=== PATIENT | male | born 1950 | race Caucasian/White ===

== ENCOUNTER 2024-11-02 14:46 | Emergency (ER) | payer MEDICARE, SELFPAY ==
[2024-11-02] VITALS (7 sets, daily range): BP systolic 136–165; BP diastolic 84–108; PULSE 48–52; BMI 24.7
[2024-11-02 15:15] LABS: Hematocrit 41.4 % (39.0-52.0); Hemoglobin 14.6 g/dL (13.0-18.0); Mean Corp Hgb Conc. 35.3 g/dL (33.0-37.0); Mean Corpuscular Volume 85.0 fL (80.0-94.0); Nucleated Red Blood Cells % 0 % (-); Platelet Count 222 10^3/uL (130-400); Red Cell Dist. Width 12.8 % (11.5-14.5)
[2024-11-02 15:32] LABS: ALT (SGPT) 30 U/L (0-50); AST (SGOT) 26 U/L (17-59); Albumin 5.0 g/dl (3.5-5.0); Alkaline Phosphatase 90 U/L (38-126); Blood Urea Nitrogen 22 mg/dl (9-20); Calcium 9.6 mg/dl (8.4-10.2); Carbon Dioxide 22 mmol/L (22-30); Chloride 104 mmol/L (98-107); Glucose 110 mg/dl (70-99); Potassium 3.9 mmol/L (3.5-5.1); Sodium 137 mmol/L (135-145); Total Protein 8.0 g/dl (6.3-8.2); eGFR > 60.00
--- NOTE | 2024-11-02 20:02 | ED.GENMED ---
History of Present Illness
General
Chief Complaint: Dizziness
Source: patient
Exam Limitations: none
Time Seen by Provider: 11/02/24 19:05
Nursing documentation reviewed up to this point in time: agreed with
History of Present Illness
History of Present Illness:
Patient presents to ED secondary to sudden onset of dizziness, while he was at home this afternoon around noon. Patient states that he was in sitting position when symptoms started. Since then, dizziness persisted for next 3 hours, no matter what
position he is in. Denies headache. Denies blurry vision. Denies loss of sensation or weakness. Denies difficulty with swallowing or speech. Denies room spinning sensation. Patient states that his symptoms are reminiscent of when he may have
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 Denies recent illness. Denies recent change in medications or diet. Denies recent travel. Denies loss of appetite. Denies recent weight changes. Of note, patient states that he
probably does not drink as much water as he probably should. At the time of evaluation, patient states that his symptoms have resolved.
Review of Systems
Review of Systems
Allergies reviewed?: Yes
All Other Systems: ROS reviewed and negative except as documented in HPI and ROS
Constitutional: Reports no symptoms
Respiratory: Reports no symptoms; Denies trouble breathing
Cardiac: Reports no symptoms; Denies chest pain or palpitations
ABD/GI: Reports nausea; Denies vomiting
Musculoskeletal: Reports no symptoms
Skin: Reports no symptoms
Neurological: Reports dizzy; Denies headache, weakness or numbness
Phy Exam
Physical Exam
Physical Exam:
Physical Exam
General: no apparent distress, not acutely ill. afebrile
Head: nc/at. eom. no nystagmus noted
Neck: supple. no meningeal signs.
Heart: s1/s2 regular rate and rhythm
Lungs: no acute respiratory distress. clear bilaterally
Abdomen: normal bowel sounds. not tender.
Neuro: alert and oriented x 3. no focal neurological deficits. normal speech. normal gait
Skin: no rash
Psychiatric: well kept. interactive and cooperative
Extremities: no edema. no calf tenderness.
Course
Orders/Labs/Results
Orders:
Orders
11/02/24 14:55
Electrocardiogram (*1) Urgent
Reason for Study: Chest Pain
EKG- Treatment ONCE
11/02/24 15:05
Complete Blood Count/With Diff Urgent
Comprehensive Metabolic Panel Urgent
11/02/24 19:13
Orthostatic VS- Treatment ONCE
11/02/24 19:39
CT Head W/o Iv Contrast Urgent
Comment:
Reason For Exam: dizziness
11/02/24 19:51
Troponin I Urgent
11/02/24 20:47
Urinalysis Reflex To Culture Urgent
Date Specimen was Collected: 11/02/24
Time Specimen was Collected: 20:45
11/02/24 21:23
0.9% Sodium Chloride 500 ml [Nss] 500 ml IV BOLUS
Abnormal Lab Results
11/02/24
15:05
MPV 10.6 H fL
(7.4-10.4)
Absolute Lymphs (auto) 3.9 H 10^3/uL
(1.2-3.4)
Absolute Monos (auto) 1.0 H 10^3/uL
(0.1-0.6)
Monocytes % 9.5 H %
(1.7-9.3)
BUN 22 H mg/dl
(9-20)
Glucose 110 H mg/dl
(70-99)
11/02/24 15:05
11/02/24 15:05
Vital Signs
Initial and Last Documented VS:
Initial Vital Signs
Temp Pulse Resp BP Pulse Ox
98.3 F 53 16 137/98 100
11/02/24 14:50 11/02/24 14:50 11/02/24 14:50 11/02/24 14:50 11/02/24 14:50
Last Documented Vital Signs
Temp Pulse Resp BP Pulse Ox
98.3 F 43 14 137/99 100
11/02/24 14:50 11/02/24 21:30 11/02/24 21:30 11/02/24 21:02 11/02/24 21:15
MDM/Problems Addressed
MDM/Problems Addressed:
CT head report reviewed and discussed with patient, as well as blood work results. Patient otherwise remains afebrile, hemodynamically stable, and neurologically intact. Patient given IV fluids and afterwards he was able to ambulate independently
with steady gait, without any symptoms. At this time, patient's differential diagnosis includes vertigo versus dehydration versus less likely VBI versus TIA. Patient feels comfortable going home at this time. With recommendation to follow-up with
PCP for reevaluation, including potential MRI brain as an outpatient, or consider to return to ED with recurrent symptoms. In addition, during observation, intermittent bradycardia noted, with heart rate high 40s to 50s, but without any symptoms.
As such, no further studies indicated at this time.
*Pulse Oximetry
SaO2: 100
Oxygen Mode of Delivery: Room air
Patient hypoxic: no
*Critical Care Note
Total Time (30-74mins, 75-104mins- exclusive of procedures): Not Applicable
ED Attending Note
-
Portions of this chart may have been created with voice recognition software.� Occasional wrong word or��sound alike� substitutions may have occurred due to the inherent limitations of voice recognition software.
Discharge Plan
Departure
Patient Disposition: Home (Routine Discharge)
Date of Disposition: 11/02/24
Time of Disposition: 21:55
Patient with high blood pressure during this ER visit?: Yes
Condition: Fair
Discharge Problem:
Dizziness
Instructions: Dizziness
Referrals:
Keshawn Hicks MD [Family Provider, Internal Medicine]
Activity Restrictions/Additional Instructions:
As discussed, please follow-up with your primary care physician for reevaluation, including potential MRI brain as outpatient. Please consider return to ED with recurrent symptoms.
Interventions
Interventions:
*Risk Screen - Suicide Last Done: 11/02/24 14:50
*General Assessment Last Done: 11/02/24 19:38
*Neglect/Abuse Screening Last Done: 11/02/24 14:50
*ED- Fall Risk Assessment Last Done: 11/02/24 19:38
*ED COVID-19 Vaccine History Last Done: 11/02/24 19:38
*Nursing Disposition Last Done: 11/02/24 22:27
ED- Neurological Assessment Last Done: 11/02/24 19:38
ED- Cardiac Assessment Last Done: 11/02/24 19:38
ED Swallowing Screen Last Done: 11/02/24 19:38
Discharge Date and Time
Discharge Date/Time: 11/02/24 22:27
Print Language: HUNGARIAN
[2024-11-02 20:22] LABS: Troponin I < 0.012 ng/ml
[2024-11-02 21:00] LABS: Urine Character Clear (Clear)
[2024-11-02] MEDS: NSS 500 IV (21:35)
== END 2024-11-02 22:27 | disposition home or self-care (01) ==
LOC: EMR 14:46
PROVIDERS: Emergency Medicine; EMERGENCY PHYSICIAN Emergency Medicine; FAMILY PHYSICIAN Internal Medicine Geriatric Medicine
DX: R42 Dizziness and giddiness (principal)
CPT/HCPCS: 99284; 70450; 80053; 81003; 84484; 85025; 93005

== ENCOUNTER → 2024-11-05 10:19 | Outpatient (REF) | payer MEDICARE, SELFPAY | LOC: RAD 10:19 | PROVIDERS: ATTENDING PHYSICIAN Internal Medicine Geriatric Medicine | DX: Z00.00 Encounter for general adult medical examination without abnormal findings (principal); I10 Essential (primary) hypertension; E78.00 Pure hypercholesterolemia, unspecified; E55.9 Vitamin D deficiency, unspecified; K21.9 Gastro-esophageal reflux disease without esophagitis; Z13.31 Encounter for screening for depression | CPT/HCPCS: 76705 ==

== ENCOUNTER → 2024-11-07 12:33 | Outpatient (REF) | payer MEDICARE, SELFPAY | LOC: RAD 12:33 | PROVIDERS: ATTENDING PHYSICIAN Internal Medicine Geriatric Medicine | DX: R19.03 Right lower quadrant abdominal swelling, mass and lump (principal); K21.9 Gastro-esophageal reflux disease without esophagitis | CPT/HCPCS: 74177; Q9967 ==

== ENCOUNTER → 2024-11-12 06:32 | Outpatient (REF) | payer MEDICARE, SELFPAY | LOC: MRI 06:32 | PROVIDERS: ATTENDING PHYSICIAN Nurse Practitioner Family | DX: G45.9 Transient cerebral ischemic attack, unspecified (principal) | CPT/HCPCS: 70551 ==

== ENCOUNTER → 2024-11-13 12:22 | Outpatient (REF) | payer MEDICARE, SELFPAY | LOC: RAD 12:22 | PROVIDERS: ATTENDING PHYSICIAN Nurse Practitioner Family; FAMILY PHYSICIAN Internal Medicine Geriatric Medicine | DX: K21.9 Gastro-esophageal reflux disease without esophagitis (principal); R19.03 Right lower quadrant abdominal swelling, mass and lump; R42 Dizziness and giddiness; R00.1 Bradycardia, unspecified | CPT/HCPCS: 71250; 93225; 93226 ==

== ENCOUNTER 2025-01-03 06:25 | Day surgery (SDC) | payer MEDICARE, SELFPAY | END 2025-01-03 09:43 | disposition home or self-care (01) | LOC: GI 06:25 | PROVIDERS: ATTENDING PHYSICIAN Internal Medicine Gastroenterology | DX: R19.4 Change in bowel habit (principal); K64.8 Other hemorrhoids; K57.30 Diverticulosis of large intestine without perforation or abscess without bleeding; R12 Heartburn; K44.9 Diaphragmatic hernia without obstruction or gangrene; K31.89 Other diseases of stomach and duodenum; K52.832 Lymphocytic colitis; Z13.810 Encounter for screening for upper gastrointestinal disorder | CPT/HCPCS: 45380; 43239; 88305; 88342 ==

== ENCOUNTER → 2025-03-18 07:42 | Outpatient (REF) | payer MEDICARE, SELFPAY | LOC: RAD 07:42 | PROVIDERS: ATTENDING PHYSICIAN Psychiatry & Neurology Neurology; FAMILY PHYSICIAN Internal Medicine Geriatric Medicine | DX: R42 Dizziness and giddiness (principal) | CPT/HCPCS: 70496; 70498; Q9967 ==